=== PATIENT | male | born 1965 | race Caucasian/White ===

== ENCOUNTER 2019-04-02 08:01 | Day surgery (SDC) | payer OTHER ==
[2019-04-02] MEDS ORDERED: FAMOTIDINE 20 MG/2 ML VIAL IV ONE (08:48)
[2019-04-02] MEDS ORDERED: LABETALOL HCL 20 MG/4 ML SYRINGE IV ONE (08:48)
[2019-04-02] MEDS ORDERED: ONDANSETRON HCL/PF 4 MG/ 2ML VIAL ONE ×2 (08:48)
[2019-04-02] MEDS ORDERED: SUGAMMADEX SODIUM 200 MG/2 ML VIAL IV ONE (08:48)
[2019-04-02] MEDS ORDERED: PROPOFOL 200 MG/20 ML VIAL IV ONE (08:48)
[2019-04-02] MEDS ORDERED: ENOXAPARIN SODIUM 40 MG/0.4 ML DISP.SYRIN SQ ONE (08:48)
[2019-04-02] MEDS ORDERED: ceFAZolin SODIUM 1 GM VIAL ONE (08:48)
[2019-04-02] MEDS ORDERED: LIDOCAINE HCL 1% PF 300MG/30ML VIAL ONE (08:48)
[2019-04-02] MEDS ORDERED: DEXAMETHASONE SODIUM PHOSPHATE 10 MG/ML VIAL ONE (08:48)
[2019-04-02] MEDS ORDERED: LACTATED RINGERS 1,000 ML IV.SOLN IV ONE ×2 (08:48)
[2019-04-02] MEDS ORDERED: ROCURONIUM BROMIDE 10 MG/ML 5ML VIAL ONE (08:48)
[2019-04-02] MEDS ORDERED: LEVALBUTEROL NEB 1.25 MG/3 ML VIAL.NEB NEB ONE (08:48)
[2019-04-02] MEDS ORDERED: LIDOCAINE HCL 2% PF 100MG/5ML VIAL IJ ONE (08:48)
[2019-04-02] MEDS ORDERED: SEVOFLURANE 250 ML LIQUID IH ONE (08:48)
[2019-04-02] MEDS ORDERED: GLYCOPYRROLATE 0.2 MG/1 ML 1 ML ONE (08:48)
[2019-04-02] MEDS ORDERED: SODIUM CHLORIDE IRRIG SOLUTION 3,000 ML IRRIG.SOLN IR ONE (08:48)
[2019-04-02] MEDS ORDERED: BUPIV. HCL 0.25% (2.5MG/ML)/EPI. (1:200,000) PF 30 ML VIAL IJ ONE (08:48)
[2019-04-02] MEDS ORDERED: MIDAZOLAM HCL 2 MG/2 ML VIAL ONE (08:48)
== END 2019-04-02 12:44 | disposition other institution (70) ==
LOC: OPSURG 08:01
PROVIDERS: ATTEND Surgery
DX: E66.01 Morbid (severe) obesity due to excess calories (principal); G47.30 Sleep apnea, unspecified; E11.9 Type 2 diabetes mellitus without complications; E78.5 Hyperlipidemia, unspecified; M19.90 Unspecified osteoarthritis, unspecified site; Z68.41 Body mass index [BMI] 40.0-44.9, adult
CPT/HCPCS: 43775; 88305; 97116; 97161; J0690; J1650; J2001; J2250; J2405; J2704; J3490; J7120; J7614